=== PATIENT | male | born 1955 | race Caucasian/White ===

== ENCOUNTER 2016-12-19 05:49 | Emergency (ER) | payer BC ==
--- NOTE | 2016-12-19 06:32 | DIAGNOSTIC IMAGING REPORT ---
PROCEDURE: XR CHEST 1 VIEW INDICATION: CHEST PAIN TECHNIQUE: Portable AP view (0620 hours). COMPARISON: None. FINDINGS: Lungs are clear. Heart and mediastinum are normal. Thorax is normal. IMPRESSION: 1. Negative chest.
--- NOTE | 2016-12-19 07:34 | ED CLINICAL REPORT ---
Clinical Report - Physicians/Mid Levels [facility] [address] [place] [place] [address] 12/19/2016 5:53 Patient: YANIV LEUNG Time Seen; initial patient contact. Arrived- By private vehicle. Historian- patient. HISTORY OF PRESENT ILLNESS Chief Complaint: BLOOD PRESSURE ELEVATED. Checked by patient at home. At its maximum, severity described as moderate. When seen in the E.D., it was gone. Modifying factors. Not worsened by anything. Not relieved by anything. This started just prior to arrival and is still present. It was abrupt in onset. No headache, visual disturbance, fatigue, muscle aches or weakness. Denies sleep problem. Similar symptoms previously: None. Recent medical care: Not recently seen/assessed. REVIEW OF SYSTEMS No difficulty breathing, nausea, vomiting, calf pain or difficulty breathing. No pedal edema or palpitations. He complains of mild chest pain, currently mild. All systems otherwise negative, except as recorded above. PAST HISTORY A fib Hypertension. Hypercholesterolemia. SURGERIES: Appendectomy. Medications: Xarelto Oral. AmLODIPine Besylate Oral (Tablet 10 mg) 1 tablet, daily (in the PM). Irbesartan Oral (Tablet 300 mg) 1 tablet, daily (in the AM). Propafenone HCl Oral 325 mg, 2x a day. Allergies: Betapace. LOSARTAN. SOCIAL HISTORY Never smoker. Occasional alcohol use. No drug use. No recent travel. ADDITIONAL NOTES The nursing notes have been reviewed with agreement regarding the chief complaint, PMH and patient medications and allergies. PHYSICAL EXAM Vital Signs: 12/19/2016 05:56 BP: 130/60. HR: 60. RR: 16. O2 saturation: 97%. Temp: 98.6 F. Pain level now: 0/10. Have been reviewed as normal. Appearance: Alert. No acute distress. Eyes: Eyes normal inspection. ENT: Pharynx normal. Neck: Normal inspection. Neck supple. No JVD or carotid bruit. CVS: Normal heart rate and rhythm. 2/6 mid systolic murmur located at the apex. Respiratory: No respiratory distress. Breath sounds normal. Skin: Skin warm and dry. Normal skin color. No rash. Extremities: No calf tenderness. No lower extremity edema. Neuro: Oriented X 3. LABS, X-RAYS, AND EKG EKG: EKG time: (606). No acute process. No acute ischemia. Normal EKG. Bradycardia (ventricular rate 58). Normal P waves. Normal JEFF. Normal QRS complex. Normal axis. Normal ST and T waves, QT and QTc. Prior EKG unavailable. The study has been interpreted contemporaneously by me. The study has been independently viewed by me. The EKG appears to be a good tracing. I agree with and confirm the computer reading of the EKG. Interpretation time: 606. Chest X-ray: No acute disease. Normal lung markings present. Normal heart size. No infiltrate. Views: AP. Technique: good. The X-rays were independently viewed by me and interpreted contemporaneously by me. Prior films were not available for comparison. Interpretation time: 629. Laboratory Tests: CBC w Diff: (YESICA: 12/19/2016 06:16) ( [facility] [place]28) Final results Test Result Flag Units (Reference) WHITE BLOOD COUNT 3.9 L K/uL (4.5-11.5) RED BLOOD COUNT 4.76 M/uL (4.50-5.90) HEMOGLOBIN 14.6 gm/dL (13.5-17.5) HEMATOCRIT 43.6 % (41.0-53.0) MEAN CELL VOLUME 92 fL (80-100) MEAN CORPUSCULAR HGB 31 pg (26-34) MEAN CORPUSCULAR HGB CONC 34 g/dL (31-37) RED CELL DISTRIBUTION WIDTH 12.1 % (11.6-14.8) PLATELET COUNT 192 K/uL (150-400) NEUTROPHIL % 61.6 % (50-75) LYMPH % 23.9 L % (25-40) MONO % 13.3 % (3-14) EOSINOPHIL % 0.9 % (0-4) BASOPHIL % 0.3 % (0-2) [id number]: (YESICA: 12/19/2016 06:16) ( [place]cvd 12/19/2016 06:42) Final results Test Result Flag Units (Reference) D-DIMER QUANTITATIVE < 0.27 L ug/mLFEU (0.27-0.52) The primary value of this quantitative assay relates toits negative predictive value (i.e. exclusion) of pulmonaryembolism/deep vein thrombosis/DIC.Elevated levels of d-dimer may also occur with:, age, cancer, inflammation, liver disease,post-op, infection, hematoma, coronary disease, peripheralarteriopathy, bleeding disorders and thrombolytic treatment.Results should be correlated with other clinical andradiological data.Testing Methodology: Latex Immunoassay BNP: (YESICA: 12/19/2016 06:16) ( MsgRcvd 12/19/2016 06:55) Final results Test Result Flag Units (Reference) B-TYPE NATRIURETIC PEPTIDE 18.1 pg/ml (5-100) CHEM 13 PANEL: (YESICA: 12/19/2016 06:16) ( MsgRcvd 12/19/2016 06:49) Final results Test Result Flag Units (Reference) GLUCOSE 118 H mg/dL (70-110) BUN 21 H mg/dL (7-18) CREATININE 1.3 mg/dL (0.6-1.3) Estimated GFR >60 mL/min Estimated GFR- >60 mL/min Note: Persistent reduction over 3 months in eGFR<60 mL/min/1.73 m2 defines CKD. Patients with eGFR values>=60 mL/min/1.73 m2 may also have CKD if evidence ofpersistent proteinuria. Additional information may be foundat www.kidney.org. SODIUM 141 mmol/L (136-145) POTASSIUM 4.0 mmol/L (3.5-5.1) CHLORIDE 106 mmol/L (98-107) CARBON DIOXIDE 27 mmol/L (21-32) CALCIUM 8.9 mg/dL (8.5-10.1) TOTAL PROTEIN 6.6 g/dL (6.4-8.2) ALBUMIN 3.8 g/dL (3.3-5.0) BILIRUBIN, TOTAL 0.5 mg/dL (0.0-1.0) ALKALINE PHOSPHATASE 63 U/L (46-116) AST (SGOT) 13 L U/L (15-37) ALT (SGPT) 24 U/L (12-78) CPK 100 U/L (24-260) MAGNESIUM 1.9 mg/dL (1.8-2.4) TROPONIN I <0.05 L ng/mL (0.00-1.5) TROPONIN REFERENCE RANGE:<0.1 NEGATIVE0.1-1.5 INDETERMINANT>1.5 POSITIVE . PROGRESS AND PROCEDURES Course of Care: 12/19/2016 07:00 BP: 110/57. HR: 52. RR: 12. O2 saturation: 98%. Pain level now: 0/10. Vital Signs: have been reviewed. Hypotensive. Bradycardic. Respiratory rate normal. Oxygen saturation normal. Disposition: Discharged home in good and improved condition. Condition: good. CLINICAL IMPRESSION Essential hypertension. Atypical chest pain .12 lead EKG performed. INSTRUCTIONS Follow a low salt diet. Your Current Medications: CONTINUE TAKING THE FOLLOWING MEDICATIONS: AmLODIPine Besylate Oral : Tablet 10 mg, 1 tablet daily, in the PM. Irbesartan Oral : Tablet 300 mg, 1 tablet daily, in the AM. Propafenone HCl Oral : 325 mg 2x a day. Xarelto Oral. Follow-up: Follow up with your doctor in about two days. Call for an appointment. Blood pressure screening was not performed during this visit because the patient has an active diagnosis of hypertension. (Electronically signed by Luis Vaca Dr. 12/19/2016 7:44)
--- NOTE | 2016-12-19 07:34 | ED NURSING NOTES ---
Clinical Report - Nurses [place] [address] [place] [address] 12/19/2016 5:53 Patient: YANIV LEUNG TRIAGE Triage time 05:57. Acuity: LEVEL 4. Chief Complaint: CHEST PAIN (Yaniv states he woke up this morning, checked his BP, and it was elevated 190/100. He reports taking a BP med PM/AM. He states he has noticed over the last couple of weeks his BP has been creeping up.). 06:03 12/19/16. Alert. No acute distress. SEPSIS SCREEN: Sepsis Screen: negative. Negative (no infection suspected/documented). --06:03 Sergio Guerrero R.N. 05:56 12/19/16. BP: 130/60 (regular adult cuff) taken on the left arm, via an automated monitor, while lying. HR: 60 (normal rate). RR: 16 (regular, unlabored and normal). O2 saturation: 97% on room air. Temp: 98.6 F (oral). Pain level now: 0/10. --06:03 Sergio Guerrero R.N. Weight: 108.8 kg stated. Height/Length: 70 inches Per Patient. BMI: 34.4. --06:00 Sergio Guerrero R.N. Medications Propafenone HCl Oral 325 mg, 2x a day. --05:58 Sergio Guerrero R.N. Irbesartan Oral (Tablet 300 mg) 1 tablet, daily (in the AM). --05:58 Sergio Guerrero R.N. AmLODIPine Besylate Oral (Tablet 10 mg) 1 tablet, daily (in the PM). --05:59 Sergio Guerrero R.N. The following entry was struck and corrected by Sergio Guerrero R.N., 06:01 (12/19/16) Reason for correction - other(correction). <<STRICKEN ENTRY-- Propafenone HCl Oral. --05:58 Sergio Guerrero R.N. --END STRIKE>> The following entry was struck and corrected by Sergio Guerrero R.N., 06:00 (12/19/16) Reason for correction - other(correction). <<STRICKEN ENTRY-- AmLODIPine Besylate Oral (Tablet 10 mg). --05:59 Sergio Guerrero R.N. --END STRIKE>> The following entry was struck and corrected by Sergio Guerrero R.N., 06:00 (12/19/16) Reason for correction - other(correction). <<STRICKEN ENTRY-- Irbesartan Oral. --05:58 Sergio Guerrero R.N. --END STRIKE>>. Medication/allergy information source: the patient. --06:03 Sergio Guerrero R.N. Allergies LOSARTAN. --06:01 Sergio Guerrero R.N. Betapace. --06:01 Sergio Guerrero R.N. History Arrived by private vehicle. Historian: patient. Accompanied by spouse. Primary physician (Dr. Francisco You ([place])). This started just prior to arrival. He has had mild central chest pain ("Tightness"). No cough, chills, fever, sweating episodes or difficulty breathing. No abdominal pain, dizziness or headache. He has not had fatigue. Denies muscle aches or poor appetite. 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 PAST MEDICAL HX: Immunizations: up-to-date and seasonal influenza. Has not received pneumonia vaccine. SOCIAL HX: Never smoker. Occasional alcohol use. No drug use. He has not traveled outside the [place] The patient was not exposed to MRSA. ABUSE ASSESSMENT: Abuse assessment: The patient was asked "Do you feel safe in your home?" and "Has anyone hurt you or threatened to hurt you?". No report of abuse. SELF HARM ASSESSMENT: A self harm assessment was performed. The patient answered "no" to the question "Do you have thoughts of harming or killing yourself?" and "Have you recently had thoughts about harming or killing others?". FALL RISK ASSESSMENT: Fall risk assessment completed. No fall risk identified. NUTRITIONAL RISK ASSESSMENT: The nutritional risk assessment revealed no deficiencies. LEARNING NEEDS ASSESSMENT: The learning needs assessment revealed no barriers. FUNCTIONAL ASSESSMENT: Functional assessment performed: independent with the activities of daily living; wears glasses- this visual impairment is an ongoing problem. SKIN INTEGRITY ASSESSMENT: Skin integrity risk assessment completed. No skin integrity risk identified. --06:03 Sergio Guerrero R.N. PROBLEMS: Irregular Heart Beat. Hypertension. Hypercholesterolemia. --05:59 Sergio Guerrero R.N. ADDITIONAL SURGERIES: Appendectomy. --06:01 Sergio Guerrero R.N. Assessment GENERAL / NEURO / PSYCH: Alert. Oriented X 4. Appears in no acute distress. Sherron Coma Scale: 15- eyes open spontaneously (4); best verbal response- oriented x 4 (5); best motor response- obeys commands (6). Patient appears calm and cooperative. RESPIRATORY: No respiratory distress. Respirations not labored. SKIN: Skin is warm and dry. --06:03 Sergio Guerrero R.N. Interventions ID band on patient. To treatment room. --06:03 Sergio Guerrero R.N. PHYSICAL ASSESSMENT Ambulatory to room. GENERAL / NEURO / PSYCH: Alert. Oriented X 4. Appears in no acute distress. RESPIRATORY: No respiratory distress. Respirations not labored. Chest nontender. Breath sounds within normal limits. CVS: No JVD or carotid bruit. Heart sounds within normal limits. Pulses within normal limits. ( No renal or iliac bruits noted.). Capillary refill less than 2 seconds. GI / : Abdomen soft and nontender and normal bowel sounds. SKIN: Skin intact. Skin is warm and dry. --06:08 Sergio Guerrero R.N. NURSING PROGRESS NOTES The initial plan of care for this patient has been created This plan of care was discussed with the patient. mechanical engineering technologist, pulse oximeter and NIBP monitor placed on patient; obstetrical anesthesiologist- Lead II. Patient gowned. Reassurance given to the patient. Two patient identifiers checked. Call light placed in reach. Side rails up x 1. Bed placed in lowest position. Brakes of bed on. Patient ready for evaluation- ED physician notified. --06:05 Sergio Guerrero R.N. 06:08 12/19/16. BP: 121/61 (regular adult cuff) taken on the left arm, via an automated monitor, while lying. HR: 58 (regular and bradycardic). RR: 20 (regular, unlabored and normal). O2 saturation: 96% on room air. --06:09 Sergio Guerrero R.N. EKG time: (07). EKG was ordered, performed by a tech and shown to the ED physician. --06:09 Sergio Guerrero R.N. EKG time: (06:07). EKG was performed by a tech and shown to the ED physician. --06:12 Triston Glasgow 06:30 12/19/2016 Site #1 started via IV in the right antecubital space with an 20g angiocath, with aseptic technique and good blood return; one attempt. Blood drawn: rainbow set. Labeled in the presence of the patient and sent to the lab. Saline lock flushed with 10 mL saline. --06:30 Sergio Guerrero R.N. 07:05 late entry -. Reassurance given. The patient is calm and resting quietly. Two patient identifiers checked. Call light placed in reach. Side rails up x 1. Bed placed in lowest position. Brakes of bed on. Brakes of chair on. Care transferred and report received ([place]). --07:32 Shanae Mccain R.N. 07:00 12/19/16. BP: 110/57 (regular adult cuff) taken on the right arm, via an automated monitor, while lying. HR: 52 (regular and bradycardic). RR: 12. O2 saturation: 98% on room air. Pain level now: 0/10. --07:32 Shanae Mccain R.N. DISPOSITION / DISCHARGE 07:42 12/19/2016 Site #1 removed upon discharge. Catheter intact. Manual pressure and bandaid applied. --07:43 Shanae Mccain R.N. Departure time: 0744 AM. Condition at departure: improved and stable. The goals identified in the patient's plan of care were met. No learning barriers present. Discharge instructions provided and reviewed with the patient. Reviewed warnings (Follow up with MD to adjust meds if needed). He has no diet restrictions. He has no activity restrictions. Patient and spouse verbalized understanding. Written instructions provided in Irish. No medication instructions, treatment instructions or referrals given to the patient. The patient was discharged by the physician. He was discharged home and accompanied by spouse. He left the Emergency Department via private vehicle. Spouse driving. FALL RISK ASSESSMENT: Fall risk assessment completed. No fall risk identified. SHERRON COMA SCORE: Sherron Coma Scale: 15- eyes open spontaneously (4); best verbal response- oriented x 4 (5); best motor response- obeys commands (6). --07:44 Shanae Mccain R.N. 07:30 12/19/16. BP: 115/63 (regular adult cuff) taken on the left arm, via an automated monitor, while sitting. HR: 53 (regular and bradycardic). RR: 13 (regular and unlabored). O2 saturation: 98% on room air. Temp: 98.2 F (oral). Pain level now: 0/10. --07:44 Shanae Mccain R.N. Locked/Released at 12/19/2016 7:45 by Shanae Mccain R.N.
--- NOTE | 2016-12-19 07:34 | ED ORDER SUMMARY ---
..... Patient: YANIV LEUNG OrderSheet [facility] VisitID: [id number] [place] [address] 61y, M Registration Date/Time: 12/19/2016 ORDER SHEET Weight: 108.8 kg (stated) Allergies: LOSARTAN, Betapace GENERAL ORDERS: Chest 1V Urgent (06:12/19/2016 Tian Marks) (Ack 6:15 CHagerty ER Wilton Weaver) (6:26 RFay) D-Dimer Urgent (06:12/19/2016 Tian Marks) (Ack 6:15 yKawerty ER Wilton Weaver) (6:30 JDeElena R.N.) BNP Urgent (06:12/19/2016 Tian Marks) (Ack 6:15 Bobby ER Wilton Weaver) (6:30 JDeElena R.N.) Cardiac Panel Stat (06:12/19/2016 Tian Marks) (Ack 6:15 Bobby ER Wilton Weaver) (6:30 JDeElena R.N.) MEDICATION ORDERS: IV FLUIDS: IV Saline Lock (06:12/19/2016 Tian Marks) (6:30 JDeElena R.N.) ORDER SHEET NOTES: [Electronically signed by Luis Vaca Dr. (07:44 12/19/2016)] [Electronically signed by Shanae Mccain R.N. (07:45 12/19/2016)] [Electronically locked/signed by Shanae Mccain R.N. (07:45 12/19/2016)]
--- NOTE | 2016-12-19 07:34 | ED NURSING NOTES ---
Clinical Report - Nurses [place] [place] [address] 12/19/2016 5:53 Patient: YANIV LEUNG TRIAGE Triage time 05:57. Acuity: LEVEL 4. Chief Complaint: CHEST PAIN (Yaniv states he woke up this morning, checked his BP, and it was elevated 190/100. He reports taking a BP med PM/AM. He states he has noticed over the last couple of weeks his BP has been creeping up.). 06:03 12/19/16. Alert. No acute distress. SEPSIS SCREEN: Sepsis Screen: negative. Negative (no infection suspected/documented). --06:03 Sergio Guerrero R.N. 05:56 12/19/16. BP: 130/60 (regular adult cuff) taken on the left arm, via an automated monitor, while lying. HR: 60 (normal rate). RR: 16 (regular, unlabored and normal). O2 saturation: 97% on room air. Temp: 98.6 F (oral). Pain level now: 0/10. --06:03 Sergio Guerrero R.N. Weight: 108.8 kg stated. Height/Length: 70 inches Per Patient. BMI: 34.4. --06:00 Sergio Guerrero R.N. Medications Propafenone HCl Oral 325 mg, 2x a day. --05:58 Sergio Guerrero R.N. Irbesartan Oral (Tablet 300 mg) 1 tablet, daily (in the AM). --05:58 Sergio Guerrero R.N. AmLODIPine Besylate Oral (Tablet 10 mg) 1 tablet, daily (in the PM). --05:59 Sergio Guerrero R.N. The following entry was struck and corrected by Sergio Guerrero R.N., 06:01 (12/19/16) Reason for correction - other(correction). <<STRICKEN ENTRY-- Propafenone HCl Oral. --05:58 Sergio Guerrero R.N. --END STRIKE>> The following entry was struck and corrected by Sergio Guerrero R.N., 06:00 (12/19/16) Reason for correction - other(correction). <<STRICKEN ENTRY-- AmLODIPine Besylate Oral (Tablet 10 mg). --05:59 Sergio Guerrero R.N. --END STRIKE>> The following entry was struck and corrected by Sergio Guerrero R.N., 06:00 (12/19/16) Reason for correction - other(correction). <<STRICKEN ENTRY-- Irbesartan Oral. --05:58 Sergio Guerrero R.N. --END STRIKE>>. Medication/allergy information source: the patient. --06:03 Sergio Guerrero R.N. Allergies LOSARTAN. --06:01 Sergio Guerrero R.N. Betapace. --06:01 Sergio Guerrero R.N. History Arrived by private vehicle. Historian: patient. Accompanied by spouse. Primary physician (Dr. Francisco You ([place])). This started just prior to arrival. He has had mild central chest pain ("Tightness"). No cough, chills, fever, sweating episodes or difficulty breathing. No abdominal pain, dizziness or headache. He has not had fatigue. Denies muscle aches or poor appetite. 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 PAST MEDICAL HX: Immunizations: up-to-date and seasonal influenza. Has not received pneumonia vaccine. SOCIAL HX: Never smoker. Occasional alcohol use. No drug use. He has not traveled outside the [place] The patient was not exposed to MRSA. ABUSE ASSESSMENT: Abuse assessment: The patient was asked "Do you feel safe in your home?" and "Has anyone hurt you or threatened to hurt you?". No report of abuse. SELF HARM ASSESSMENT: A self harm assessment was performed. The patient answered "no" to the question "Do you have thoughts of harming or killing yourself?" and "Have you recently had thoughts about harming or killing others?". FALL RISK ASSESSMENT: Fall risk assessment completed. No fall risk identified. NUTRITIONAL RISK ASSESSMENT: The nutritional risk assessment revealed no deficiencies. LEARNING NEEDS ASSESSMENT: The learning needs assessment revealed no barriers. FUNCTIONAL ASSESSMENT: Functional assessment performed: independent with the activities of daily living; wears glasses- this visual impairment is an ongoing problem. SKIN INTEGRITY ASSESSMENT: Skin integrity risk assessment completed. No skin integrity risk identified. --06:03 Sergio Guerrero R.N. PROBLEMS: Irregular Heart Beat. Hypertension. Hypercholesterolemia. --05:59 Sergio Guerrero R.N. ADDITIONAL SURGERIES: Appendectomy. --06:01 Sergio Guerrero R.N. Assessment GENERAL / NEURO / PSYCH: Alert. Oriented X 4. Appears in no acute distress. Sherron Coma Scale: 15- eyes open spontaneously (4); best verbal response- oriented x 4 (5); best motor response- obeys commands (6). Patient appears calm and cooperative. RESPIRATORY: No respiratory distress. Respirations not labored. SKIN: Skin is warm and dry. --06:03 Sergio Guerrero R.N. Interventions ID band on patient. To treatment room. --06:03 Sergio Guerrero R.N. PHYSICAL ASSESSMENT Ambulatory to room. GENERAL / NEURO / PSYCH: Alert. Oriented X 4. Appears in no acute distress. RESPIRATORY: No respiratory distress. Respirations not labored. Chest nontender. Breath sounds within normal limits. CVS: No JVD or carotid bruit. Heart sounds within normal limits. Pulses within normal limits. ( No renal or iliac bruits noted.). Capillary refill less than 2 seconds. GI / : Abdomen soft and nontender and normal bowel sounds. SKIN: Skin intact. Skin is warm and dry. --06:08 Sergio Guerrero R.N. NURSING PROGRESS NOTES The initial plan of care for this patient has been created This plan of care was discussed with the patient. gas producer, pulse oximeter and NIBP monitor placed on patient; inside barrel polisher- Lead II. Patient gowned. Reassurance given to the patient. Two patient identifiers checked. Call light placed in reach. Side rails up x 1. Bed placed in lowest position. Brakes of bed on. Patient ready for evaluation- ED physician notified. --06:05 Sergio Guerrero R.N. 06:08 12/19/16. BP: 121/61 (regular adult cuff) taken on the left arm, via an automated monitor, while lying. HR: 58 (regular and bradycardic). RR: 20 (regular, unlabored and normal). O2 saturation: 96% on room air. --06:09 Sergio Guerrero R.N. EKG time: (07). EKG was ordered, performed by a tech and shown to the ED physician. --06:09 Sergio Guerrero R.N. EKG time: (06:07). EKG was performed by a tech and shown to the ED physician. --06:12 Triston Glasgow 06:30 12/19/2016 Site #1 started via IV in the right antecubital space with an 20g angiocath, with aseptic technique and good blood return; one attempt. Blood drawn: rainbow set. Labeled in the presence of the patient and sent to the lab. Saline lock flushed with 10 mL saline. --06:30 Serigo Guerrero R.N. 07:05 late entry -. Reassurance given. The patient is calm and resting quietly. Two patient identifiers checked. Call light placed in reach. Side rails up x 1. Bed placed in lowest position. Brakes of bed on. Brakes of chair on. Care transferred and report received (Lupe Hill). --07:32 Shanae Mccain R.N. 07:00 12/19/16. BP: 110/57 (regular adult cuff) taken on the right arm, via an automated monitor, while lying. HR: 52 (regular and bradycardic). RR: 12. O2 saturation: 98% on room air. Pain level now: 0/10. --07:32 Shanae Mccain R.N. DISPOSITION / DISCHARGE 07:42 12/19/2016 Site #1 removed upon discharge. Catheter intact. Manual pressure and bandaid applied. --07:43 Shanae Mccain R.N. Departure time: 0744 AM. Condition at departure: improved and stable. The goals identified in the patient's plan of care were met. No learning barriers present. Discharge instructions provided and reviewed with the patient. Reviewed warnings (Follow up with MD to adjust meds if needed). He has no diet restrictions. He has no activity restrictions. Patient and spouse verbalized understanding. Written instructions provided in Danish. No medication instructions, treatment instructions or referrals given to the patient. The patient was discharged by the physician. He was discharged home and accompanied by spouse. He left the Emergency Department via private vehicle. Spouse driving. FALL RISK ASSESSMENT: Fall risk assessment completed. No fall risk identified. SHERRON COMA SCORE: Sherron Coma Scale: 15- eyes open spontaneously (4); best verbal response- oriented x 4 (5); best motor response- obeys commands (6). --07:44 Shanae Mccain R.N. 07:30 12/19/16. BP: 115/63 (regular adult cuff) taken on the left arm, via an automated monitor, while sitting. HR: 53 (regular and bradycardic). RR: 13 (regular and unlabored). O2 saturation: 98% on room air. Temp: 98.2 F (oral). Pain level now: 0/10. --07:44 Shanae Mccain R.N. Locked/Released at 12/19/2016 7:45 by Shanae Mccain R.N.
--- NOTE | 2016-12-19 07:34 | ED ORDER SUMMARY ---
..... Patient: YANIV LEUNG OrderSheet [facility] VisitID: [id number] [place] [address] 61y, M Registration Date/Time: 12/19/2016 ORDER SHEET Weight: 108.8 kg (stated) Allergies: LOSARTAN, Betapace GENERAL ORDERS: Chest 1V Urgent (06:12/19/2016 Tian Makrs) (Ack 6:15 CHagerty [facility]) (6:26 RFay) D-Dimer Urgent (06:12/19/2016 Tian Marks) (Ack 6:15 Kyawerty [facility]) (6:30 JDeElena R.N.) BNP Urgent (06:12/19/2016 Tian Marks) (Ack 6:15 Bobby [facility]) (6:30 JDeElena R.N.) Cardiac Panel Stat (06:12/19/2016 Tian Marks) (Ack 6:15 Bobby [facility] [employer]) (6:30 JDeElena R.N.) MEDICATION ORDERS: IV FLUIDS: IV Saline Lock (06:12/19/2016 Tian Marks) (6:30 JDeElena R.N.) ORDER SHEET NOTES: [Electronically signed by Luis Vaca Dr. (07:44 12/19/2016)] [Electronically signed by Shanae Mccain R.N. (07:45 12/19/2016)] [Electronically locked/signed by Shanae Mccain R.N. (07:45 12/19/2016)]
--- NOTE | 2016-12-19 07:45 | ED MED RECONCILIATION SUMMARY ---
Patient: YANIV LEUNG Medication Reconciliation Report [facility] VisitID: [id number] [address] [place] [address] 61y, M Registration Date/Time: 12/19/2016 Weight: 108.8 kg Height/Length: 70 in. BMI: 34.4 ALLERGIES: Betapace, LOSARTAN The patient's Home Medications are listed below: CONTINUE TAKING THE FOLLOWING MEDICATIONS: AmLODIPine Besylate Oral (10 mg) 1 tablet, daily, in the PM Irbesartan Oral (300 mg) 1 tablet, daily, in the AM Propafenone HCl Oral 325 mg, 2x a day Xarelto Oral The source(s) of the original Home Medication information: patient The following Medications were given to the patient in the Emergency Department: None. The following Medications were prescribed to the patient: None.
--- NOTE | 2016-12-19 07:45 | ED DISCHARGE INSTRUCTIONS ---
Patient: YANIV LEUNG General Instructions [facility] VisitID: [id number] [place] [address] 61y, M Registration Date/Time: 12/19/2016 Essential hypertension. Atypical chest pain .12 lead EKG performed. INSTRUCTIONS Follow a low salt diet. Your Current Medications: CONTINUE TAKING THE FOLLOWING MEDICATIONS: AmLODIPine Besylate Oral : Tablet 10 mg, 1 tablet daily, in the PM. Irbesartan Oral : Tablet 300 mg, 1 tablet daily, in the AM. Propafenone HCl Oral : 325 mg 2x a day. Xarelto Oral. Follow-up: Follow up with your doctor in about two days. Call for an appointment. Blood pressure screening was not performed during this visit because the patient has an active diagnosis of hypertension. ADDITIONAL INFORMATION Chest Pain, Noncardiac Based on your visit today, the exact cause of your chest pain is not certain. Your condition does not seem serious and your pain does not appear to be coming from your heart. However, sometimes the signs of a serious problem take more time to appear. Therefore, please watch for the warning signs listed below. Home Care: Rest today and avoid strenuous activity. Take any prescribed medicine as directed. Follow Up with your doctor or this facility as instructed or if you do not start to feel better within 24 hours. Get Prompt Medical Attention if any of the following occur: A change in the type of pain: if it feels different, becomes more severe, lasts longer, or begins to spread into your shoulder, arm, neck, jaw or back Shortness of breath or increased pain with breathing Cough with dark colored sputum (phlegm) or blood Weakness, dizziness, or fainting Fever of 100.4F (38C) or higher, or as directed by your healthcare provider Swelling, pain or redness in one leg High Blood Pressure --Established High Blood Pressure (Hypertension) is a chronic disease. The cause is unknown in most cases. It can usually be controlled with lifestyle changes and/or medicines. Symptoms of high blood pressure may include headache, dizziness, visual changes, chest pain and shortness of breath. Sometimes it causes no symptoms at all. However, even if there are no symptoms, untreated high blood pressure increases the risk of heart attack, also known as acute myocardial infarction, or AMI, and stroke. It is a serious health risk and should not be ignored. A normal blood pressure is 120/80 or less. The first (top) number is the "systolic" pressure. The second (bottom) number is the "diastolic" pressure. Hypertension exists when either the top number is 140 or higher, OR the bottom number is 90 or higher on repeated measurements. Home Care: All patients with high blood pressure should do the following to lower their pressure. If you are on medicines, then these methods may reduce or eliminate your need for medicines in the future. Begin a weight loss program if you are overweight. Reduce your salt intake. Avoid high salt foods (olives, pickles, smoked meats, salted potato chips, etc.). Do not add salt to your food at the table. Use only small amounts of salt when cooking. Begin an exercise program. Discuss with your doctor what type of exercise program would be best for you. It doesn't have to be difficult. Even brisk walking for 20 minutes three times a week is a good form of exercise. Avoid medicines which contain heart stimulants. This includes many cold and sinus decongestant pills and sprays as well as diet pills. Check the warnings about hypertension on the label. Stimulants such as amphetamine or cocaine could be lethal for someone with hypertension. Never take these. Limit your caffeine intake or switch to caffeine-free products. Stop smoking. If you are a long-time smoker, this can be hard. Enroll in a stop-smoking program to improve your chance of success. Learning how to handle stress better is an important part of any program to lower blood pressure. Learn about relaxation methods such as meditation, yoga or biofeedback. If medicines were prescribed, take them exactly as directed. Missing doses may cause your blood pressure get out of control. Consider buying an automatic blood pressure machine (available at most pharmacies). Use this to monitor your blood pressure at home and report the results to your doctor. Follow Up: Regular visits to your own physician for blood pressure checks and medicine adjustment is an important part of your care. Make a follow-up appointment as directed by our staff. Get Prompt Medical Attention if any of the following occur: Chest pain or shortness of breath Severe headache Throbbing or rushing sound in the ears Nosebleed Sudden severe abdominal pain Extreme drowsiness, confusion or fainting Dizziness or vertigo (dizziness with spinning sensation) Weakness of an arm or leg or one side of the face Difficulty with speech or vision Low-Salt Diet (2 Grams/Day) This diet eliminates foods that are high in salt and restricts the amount of salt that you cook with. It is most often used for patients with high blood pressure, edema (fluid retention), kidney, liver, and heart disease. Table salt contains the mineral sodium. The body needs sodium to work normally. But too much sodium can make your health problems worse. Your healthcare provider is recommending a low-salt (also called low-sodium) diet for you. Your total daily allowance of salt (sodium) is 2 grams. This equals 2,000 milligrams (mg). It is less than 1 teaspoon of table salt. This means you can have only about 700 mg of sodium at each meal. When you cook, limit the salt you use. And if you can avoid using salt, even better. Do not add salt at the table. So, throw away the saltshaker! When shopping, read the package labels. Salt is often called sodium on the label. Choose foods that are Salt-Free, Low Salt, or Very Low Salt. Note that foods with Reduced Salt may notlower your salt intake enough. Beverages OK: Tea, coffee, carbonated beverages, juices AVOID: Flavored international coffees, electrolyte replacement drinks, sports beverages Bread & Cereals OK: All regular bread, rolls, cereals, cakes; low-salt crackers, matzoh crackers AVOID: Salted crackers, pretzels, popcorn; indian toast, pancakes, muffins Fruits & Desserts OK: Ice cream, frozen yogurt, juice bars, gelatin (Jell-O), cookies and pies, sugar, honey, jelly, hard candy AVOID: Most pies, cakes and cookies prepared or processed with salt, instant pudding Meats OK: All fresh meat, fish, poultry, low-salt tuna AVOID: Smoked, pickled, brine-cured, or salted meats or fish. Thisincludes jay, chipped beef, corned beef, hot dogs, luncheon meats, ham, kosher meats, salt pork, sausage, canned tuna, salted codfish, smokedsalmon, denton, sardines, or anchovies. Dairy OK: Milk, chocolate milk, hot chocolate mix; eggs, Low Salt cheeses, yogurt, egg substitute AVOID: Processed cheese, cheese spreads, Roquefort, Camembert, and cottage cheese, buttermilk, instant breakfast drink Beans, Potatoes & Pasta OK: Dry beans, split peas, lentils, potatoes, rice, macaroni, noodles, spaghetti without added salt AVOID: Potato chips, tortilla chips, and similar products Soups OK: Low-salt soups and broths made with allowed foods AVOID: Bouillon cubes, soups with smoked or salted meats, regular soup and broth Vegetables OK: Most are okay; low-salt tomato and vegetable juices AVOID: Sauerkraut and other brine-soaked vegetables, pickles and other pickled vegetables, tomato juice, olives Seasoning & Spices OK: Most seasonings are okay. Good substitutes for salt include: fresh herb blends, Tabasco, lemon, garlic, lopez, vinegar, dry mustard, parsley, cilantro, horseradish, tomato paste, regular margarine, mayonnaise, butter, cream cheese, vegetable oil, cream, low-salt salad dressing and gravy AVOID: Regular ketchup, relishes, pickles, soy sauce, teriyaki sauce, Worcestershire sauce, BBQ sauce, tartar sauce, meat tenderizer, chili sauce, regular gravy, regular salad dressing You have been given the following additional information: Chest Pain, Noncardiac Hypertension, Established Diet, Low Salt (2Gm) (Electronically signed by Luis Vaca Dr. 12/19/2016 7:44)
--- NOTE | 2016-12-19 07:45 | ED MAR SUMMARY ---
..... Medication Administration Record [facility] [address] [place], [place] [id number] Patient: YANIV LEUNG Visit ID: [id number] 61y, M Weight: 108.8 kg Height/Length: 70 in BMI: 34.4 ALLERGIES: Betapace, LOSARTAN
--- NOTE | 2016-12-19 07:45 | ED MAR SUMMARY ---
..... Medication Administration Record [facility] [address] [place], [place] [id number] Patient: YANIV LEUNG Visit ID: [id number] 61y, M Weight: 108.8 kg Height/Length: 70 in BMI: 34.4 ALLERGIES: Betapace, LOSARTAN
--- NOTE | 2016-12-19 07:45 | ED MED RECONCILIATION SUMMARY ---
Patient: YANIV LEUNG Medication Reconciliation Report [facility] VisitID: [id number] [address] [place] [address] 61y, M Registration Date/Time: 12/19/2016 Weight: 108.8 kg Height/Length: 70 in. BMI: 34.4 ALLERGIES: Betapace, LOSARTAN The patient's Home Medications are listed below: CONTINUE TAKING THE FOLLOWING MEDICATIONS: AmLODIPine Besylate Oral (10 mg) 1 tablet, daily, in the PM Irbesartan Oral (300 mg) 1 tablet, daily, in the AM Propafenone HCl Oral 325 mg, 2x a day Xarelto Oral The source(s) of the original Home Medication information: patient The following Medications were given to the patient in the Emergency Department: None. The following Medications were prescribed to the patient: None.
== END 2016-12-19 07:44 | disposition home or self-care (01) ==
LOC: ED SRH 05:49
DX: I10 Essential (primary) hypertension (principal); R07.89 Other chest pain; E78.00 Pure hypercholesterolemia, unspecified; I48.91 Unspecified atrial fibrillation; Z79.01 Long term (current) use of anticoagulants; Z79.899 Other long term (current) drug therapy; Z88.8 Allergy status to other drugs, medicaments and biological substances
CPT/HCPCS: 90100; 90616; 91320; 91556; 92610; 92720; 95059